=== PATIENT | female | born 1975 | race Caucasian/White ===

== ENCOUNTER 2020-10-02 07:57 | Emergency (ER) | payer BC ==
--- NOTE | 2020-10-02 07:59 | EDM.PDOC ---
ED HPI GENERAL MEDICAL PROBLEM - General Chief Complaint: Abdominal Pain Stated Complaint: L SIDE ABD PAIN Time Seen by Provider: 10/02/20 07:59 Source of Information: Reports: Patient History Limitations: Reports: No Limitations - History of Present Illness INITIAL COMMENTS - FREE TEXT/NARRATIVE: 42-year-old female no relevant past medical history presents for left flank pain x4 days. The pain does radiate to her lateral torso. She has not noted any dysuria or hematuria. Denies nausea or vomiting. Denies abdominal pain. Denies fevers. Does not have a history of kidney stones. Denies any heavy lifting or injuries. left flankpain Pain Score (Numeric/FACES): 10 - Related Data Allergies Allergy/AdvReac Type Severity Reaction Status Date / Time No Known Allergies Allergy Verified 10/02/20 08:17 Home Meds: Home Meds . [No Known Home Meds] 10/02/20 [History] ED ROS GENERAL - Review of Systems Review Of Systems: Comprehensive ROS is negative, except as noted in HPI. ED EXAM, GENERAL - Physical Exam Exam: See Below Exam Limited By: No Limitations General Appearance: Alert, WD/WN, No Apparent Distress Ears: Hearing Grossly Normal Throat/Mouth: Normal Voice, No Airway Compromise Head: Atraumatic, Normocephalic Neck: Normal Inspection Respiratory/Chest: No Respiratory Distress, Lungs Clear, Normal Breath Sounds, No Accessory Muscle Use Cardiovascular: Normal Peripheral Pulses, Regular Rate, Rhythm GI/Abdominal: Soft, Non-Tender Back Exam: Other (Mild left CVA tenderness to palpation) Extremities: Normal Inspection Neurological: Alert, Normal Cognition, Normal Gait Psychiatric: Normal Affect, Normal Mood Skin Exam: Warm, Dry, Intact, Normal Color Course - Vital Signs Last Recorded V/S: Last Vital Signs Temp 97.6 F 10/02/20 08:11 Pulse 99 10/02/20 08:11 Resp 20 10/02/20 08:11 BP 109/69 10/02/20 08:11 Pulse Ox 99 10/02/20 08:11 - Orders/Labs/Meds Orders: Active Orders 24 hr Category Date Time Status Sodium Chloride 0.9% [Saline Flush] Med 10/02/20 08:56 Active 10 ml FLUSH ASDIRECTED PRN Sodium Chloride 0.9% [Saline Flush] Med 10/02/20 08:56 Active 2.5 ml FLUSH ASDIRECTED PRN cefTRIAXone [Rocephin in Dextrose,Iso-Osm 1 GM/50 ML] 1 Med 10/02/20 10:01 Active gm Premix Bag 1 bag IV ONETIME Saline Lock Insert [OM.PC] Stat Oth 10/02/20 08:56 Ordered Medication Orders Ceftriaxone Sodium/Dextrose 1 (gm/ Premix) 50 mls @ 100 mls/hr IV ONETIME ONE Stop: 10/02/20 10:30 Sodium Chloride (Sodium Chloride 0.9% 10 Ml Syringe) 10 ml FLUSH ASDIRECTED PRN PRN Reason: Keep Vein Open Last Admin: 10/02/20 09:43 Dose: 10 ml Documented by: CESAR Sodium Chloride (Sodium Chloride 0.9% 2.5 Ml Syringe) 2.5 ml FLUSH ASDIRECTED PRN PRN Reason: Keep Vein Open Last Admin: 10/02/20 09:43 Dose: 2.5 ml Documented by: CESAR Labs: Laboratory Tests 10/02/20 10/02/20 10/02/20 Range/Units 08:30 08:30 09:40 WBC 13.56 H (4.0-11.0) K/uL RBC 3.98 L (4.30-5.90) M/uL Hgb 11.8 L (12.0-16.0) g/dL Hct 35.2 L (36.0-46.0) % MCV 88.4 (80.0-98.0) fL MCH 29.6 (27.0-32.0) pg MCHC 33.5 (31.0-37.0) g/dL RDW Std Deviation 41.3 (28.0-62.0) fl RDW Coeff of Gary 13 (11.0-15.0) % Plt Count 187 (150-400) K/uL MPV 10.50 (7.40-12.00) fL Neut % (Auto) 77.6 (48.0-80.0) % Lymph % (Auto) 5.2 L (16.0-40.0) % Webb % (Auto) 17.0 H (0.0-15.0) % Eos % (Auto) 0.1 (0.0-7.0) % Baso % (Auto) 0.1 (0.0-1.5) % Neut # (Auto) 10.5 H (1.4-5.7) K/uL Lymph # (Auto) 0.7 (0.6-2.4) K/uL Webb # (Auto) 2.3 H (0.0-0.8) K/uL Eos # (Auto) 0.0 (0.0-0.7) K/uL Baso # (Auto) 0.0 (0.0-0.1) K/uL Nucleated RBC % 0.0 /100WBC Nucleated RBCs # 0 K/uL Sodium (136-145) mmol/L Potassium (3.5-5.1) mmol/L Chloride (98-107) mmol/L Carbon Dioxide (21.0-32.0) mmol/L BUN (7.0-18.0) mg/dL Creatinine (0.6-1.0) mg/dL Est Cr Clr Drug Dosing mL/min Estimated GFR (MDRD) ml/min Glucose (74-106) mg/dL Hemoglobin A1c (4.5 - 6.2) % Calcium (8.5-10.1) mg/dL Urine Color YELLOW Urine Appearance CLEAR Urine pH 6.0 (5.0-8.0) Ur Specific Kensal 1.020 (1.001-1.035) Urine Protein TRACE H (NEGATIVE) mg/dL Urine Glucose (UA) 250 H (NEGATIVE) mg/dL Urine Ketones NEGATIVE (NEGATIVE) mg/dL Urine Occult Blood SMALL H (NEGATIVE) Urine Nitrite NEGATIVE (NEGATIVE) Urine Bilirubin SMALL H (NEGATIVE) Urine Ictotest NEGATIVE Urine Urobilinogen 0.2 (<2.0) EU/dL Ur Leukocyte Esterase TRACE H (NEGATIVE) Urine RBC 1-3 (0-2/HPF) Urine WBC 10-15 (0-5/HPF) Ur Epithelial Cells MODERATE (NONE-FEW) Urine Bacteria FEW (NEGATIVE) Urine HCG, Qual NEGATIVE (NEGATIVE) 10/02/20 10/02/20 Range/Units 09:40 09:40 WBC (4.0-11.0) K/uL RBC (4.30-5.90) M/uL Hgb (12.0-16.0) g/dL Hct (36.0-46.0) % MCV (80.0-98.0) fL MCH (27.0-32.0) pg MCHC (31.0-37.0) g/dL RDW Std Deviation (28.0-62.0) fl RDW Coeff of Gary (11.0-15.0) % Plt Count (150-400) K/uL MPV (7.40-12.00) fL Neut % (Auto) (48.0-80.0) % Lymph % (Auto) (16.0-40.0) % Webb % (Auto) (0.0-15.0) % Eos % (Auto) (0.0-7.0) % Baso % (Auto) (0.0-1.5) % Neut # (Auto) (1.4-5.7) K/uL Lymph # (Auto) (0.6-2.4) K/uL Webb # (Auto) (0.0-0.8) K/uL Eos # (Auto) (0.0-0.7) K/uL Baso # (Auto) (0.0-0.1) K/uL Nucleated RBC % /100WBC Nucleated RBCs # K/uL Sodium 133 L (136-145) mmol/L Potassium 4.0 (3.5-5.1) mmol/L Chloride 101 (98-107) mmol/L Carbon Dioxide 24.7 (21.0-32.0) mmol/L BUN 6 L (7.0-18.0) mg/dL Creatinine 0.9 (0.6-1.0) mg/dL Est Cr Clr Drug Dosing 90.08 mL/min Estimated GFR (MDRD) > 60.0 ml/min Glucose 106 (74-106) mg/dL Hemoglobin A1c 5.1 (4.5 - 6.2) % Calcium 8.5 (8.5-10.1) mg/dL Urine Color Urine Appearance Urine pH (5.0-8.0) Ur Specific Kensal (1.001-1.035) Urine Protein (NEGATIVE) mg/dL Urine Glucose (UA) (NEGATIVE) mg/dL Urine Ketones (NEGATIVE) mg/dL Urine Occult Blood (NEGATIVE) Urine Nitrite (NEGATIVE) Urine Bilirubin (NEGATIVE) Urine Ictotest Urine Urobilinogen (<2.0) EU/dL Ur Leukocyte Esterase (NEGATIVE) Urine RBC (0-2/HPF) Urine WBC (0-5/HPF) Ur Epithelial Cells (NONE-FEW) Urine Bacteria (NEGATIVE) Urine HCG, Qual (NEGATIVE) Meds: Medications Generic Name Dose Route Start Last Admin Trade Name Freq PRN Reason Stop Dose Admin Ceftriaxone Sodium/Dextrose 1 50 mls @ 100 mls/hr 10/02/20 10:01 gm/ Premix IV 10/02/20 10:30 ONETIME ONE Sodium Chloride 10 ml 10/02/20 08:56 10/02/20 09:43 Sodium Chloride 0.9% 10 Ml Syringe FLUSH 10 ml ASDIRECTED PRN Administration Keep Vein Open Sodium Chloride 2.5 ml 10/02/20 08:56 10/02/20 09:43 Sodium Chloride 0.9% 2.5 Ml Syringe FLUSH 2.5 ml ASDIRECTED PRN Administration Keep Vein Open Discontinued Medications Generic Name Dose Route Start Last Admin Trade Name Freq PRN Reason Stop Dose Admin Sodium Chloride 1,000 mls @ 999 mls/hr 10/02/20 08:56 10/02/20 09:33 Normal Saline IV 10/02/20 09:56 999 mls/hr .Bolus ONE Administration Ibuprofen 600 mg 10/02/20 08:26 10/02/20 08:44 Ibuprofen 600 Mg Tab PO 10/02/20 08:27 600 mg ONETIME ONE Administration Oxycodone/Acetaminophen 1 tab 10/02/20 08:26 10/02/20 08:43 Acetaminophen/Oxycodone 325-5 Mg Tab PO 10/02/20 08:27 1 tab ONETIME ONE Administration - Re-Assessments/Exams Free Text/Narrative Re-Assessment/Exam: 10/02/20 08:27 We will get urinalysis and urine test. Will treat pain. We will follow up urinalysis for disposition. 10/02/20 08:58 UA remarkable for hematuria, glucosuria. Will get basic labs including hemoglobin A1c. We will get a noncontrast study to rule out renal stone. 10/02/20 10:02 CT imaging shows mild left perinephric stranding, UA does have leukocyte esterase and 10 WBCs. Will give a dose of Rocephin for UTI. 10/02/20 10:20 Labs unremarkable. Will discharge with bactrim 10/02/20 10:20 Departure - Departure Time of Disposition: 10:20 Disposition: Home, Self-Care 01 Condition: Good Clinical Impression: UTI, Urinary tract infectious disease - Discharge Information Instructions: Urinary Tract Infection, Adult, COVID-19 Vaccine Information Referrals: Nguyen Beltran DO [Primary Care Provider] - Forms: ED Department Discharge Additional Instructions: Your work-up was remarkable for evidence of urinary tract infection. Prescription called Bactrim was sent to your pharmacy. Please follow-up with your primary care physician sometime next week for reassessment. The best way to protect yourself and others from COVID-19 is to take one of the three safe and effective vaccines that have been proven to substantially reduce risk of both infection and severe illness. [facility] is currently offering COVID vaccinations for anyone age 18 and older. To schedule an appointment [email or web address] [phone]. Or, to be contacted by our clinics about scheduling your vaccine online, please go to [email or web address] The following information is given to patients seen in the emergency department who are being discharged to home. This information is to outline your options for follow-up care. We provide all patients seen in our emergency department with a follow-up referral. The need for follow-up, as well as the timing and circumstances, are variable depending upon the specifics of your emergency department visit. If you don't have a primary care physician on staff, we will provide you with a referral. We always advise you to contact your personal physician following an emergency department visit to inform them of the circumstance of the visit and for follow-up with them and/or the need for any referrals to a consulting specialist. The emergency department will also refer you to a specialist when appropriate. This referral assures that you have the opportunity for follow-up care with a specialist. All of these measure are taken in an effort to provide you with optimal care, which includes your follow-up. Under all circumstances we always encourage you to contact your private physician who remains a resource for coordinating your care. When calling for follow-up care, please make the office aware that this follow-up is from your recent emergency room visit. If for any reason you are refused follow-up, please contact the [facility] Emergency Department at and asked to speak to the emergency department charge nurse. Please follow up with your primary care physician. If you do not have a primary care physician, see below: [facility] [address] [place] [address] [facility] [address] [place] [address] Sepsis Event Note (ED) - Focused Exam Vital Signs: Vital Signs Temp Pulse Resp BP Pulse Ox 10/02/20 08:11 97.6 F 99 20 109/69 99 - My Orders Last 24 Hours: My Active Orders 10/02/20 08:56 Sodium Chloride 0.9% [Saline Flush] 10 ml FLUSH ASDIRECTED PRN Sodium Chloride 0.9% [Saline Flush] 2.5 ml FLUSH ASDIRECTED PRN Saline Lock Insert [OM.PC] Stat 10/02/20 10:01 cefTRIAXone [Rocephin in Dextrose,Iso-Osm 1 GM/50 ML] 1 gm Premix Bag 1 bag IV ONETIME - Assessment/Plan Last 24 Hours: My Active Orders 10/02/20 08:56 Sodium Chloride 0.9% [Saline Flush] 10 ml FLUSH ASDIRECTED PRN Sodium Chloride 0.9% [Saline Flush] 2.5 ml FLUSH ASDIRECTED PRN Saline Lock Insert [OM.PC] Stat 10/02/20 10:01 cefTRIAXone [Rocephin in Dextrose,Iso-Osm 1 GM/50 ML] 1 gm Premix Bag 1 bag IV ONETIME
[2020-10-02] MEDS ORDERED: Ibuprofen 600 MG Tab PO ONE (08:26)
[2020-10-02] MEDS ORDERED: Acetaminophen/oxyCODONE 325-5 MG Tab PO ONE (08:26)
[2020-10-02] MEDS ORDERED: Sodium Chloride 0.9% 1,000 ML IV ONE (08:56)
[2020-10-02] MEDS ORDERED: Sodium Chloride 0.9% 2.5 ML Syringe FLUSH PRN (08:56)
[2020-10-02] MEDS ORDERED: Sodium Chloride 0.9% 10 ML Syringe FLUSH PRN (08:56)
--- NOTE | 2020-10-02 09:59 | CT ---
INDICATION: Left-sided flank pain TECHNIQUE: CT abdomen and pelvis without contrast. COMPARISON: None. FINDINGS: Lower chest: Unremarkable. Liver: Normal in size and attenuation. No suspicious masses. Gallbladder and bile ducts: No stones or inflammation. No biliary dilatation. Pancreas: Unremarkable. No mass or inflammation. Spleen: Normal in size. No masses. Adrenal glands: Normal in size. No nodules. Kidneys: No current kidney or ureteral stones. There is minimal left-sided hydronephrosis and perinephric edema. GI tract: Unremarkable. Normal in caliber. No sign of mass or inflammation. Normal appendix. Vasculature: Unremarkable. Lymph nodes: No lymphadenopathy. Abdominal wall/Omentum/Peritoneum: Unremarkable. No sign of mass or infiltration. No free air or significant free fluid. Pelvis: Unremarkable. No pelvic masses. Bones: Unremarkable for age. IMPRESSION: No current kidney or ureteral stone. Minimal left-sided hydronephrosis and perinephric edema may be secondary to a recently passed stone or urinary tract infection. Please note that all CT scans at this facility use dose modulation, iterative reconstruction, and/or weight-based dosing when appropriate to reduce radiation dose to as low as reasonably achievable. Dictated by Joni Clark MD @ 10/02/2020 9:57:[address] Joni Clark @ Oct 02 2020 9:57AM
[2020-10-02] MEDS ORDERED: cefTRIAXone 1 GM in Premix Bag 1 BAG IV ONE (10:01)
[2020-10-02 10:11] LABS: BLOOD UREA NITROGEN,BUN 6 mg/dL (7.0-18.0); CARBON DIOXIDE,CO2 24.7 mmol/L (21.0-32.0); CHLORIDE,CL 101 mmol/L (98-107); GLUCOSE RANDOM 106 mg/dL (74-106); SODIUM,NA 133 mmol/L (136-145)
[2020-10-02 10:13] LABS: HEMOGLOBIN A1C 5.1 %
== END 2020-10-02 10:51 | disposition home or self-care (01) ==
LOC: MW.ED 07:57
DX: N39.0 Urinary tract infection, site not specified (principal)
CPT/HCPCS: 36415; 74176; 80048; 81001; 81025; 83036; 85025; 96365; 99284; A9270; J0696; J7030

== ENCOUNTER 2021-08-31 00:39 | Emergency (ER) | payer BC ==
[2021-08-31] MEDS ORDERED: Lidocaine 1% 5 ML VIAL INJECT ONE (01:07)
[2021-08-31] MEDS ORDERED: Diphtheria,Pertussis(Acell),Tetanus Vaccine 0.5 ML Syringe IM ONE (01:22)
[2021-08-31] MEDS ORDERED: Octyl 2-Cyanoacrylate 1 APPLIC TUBE ONE (02:12)
[2021-08-31] MEDS ORDERED: Octyl 2-Cyanoacrylate 1 Tube TOP STA (02:21)
[2021-08-31] MEDS ORDERED: Ketorolac 30 MG/ML SDV IM STA (02:33)
== END 2021-08-31 02:43 | disposition home or self-care (01) ==
LOC: MW.ED 00:39
DX: S01.112A Laceration without foreign body of left eyelid and periocular area, initial encounter (principal); S05.12XA Contusion of eyeball and orbital tissues, left eye, initial encounter; Z23 Encounter for immunization; W01.198A Fall on same level from slipping, tripping and stumbling with subsequent striking against other object, initial encounter
CPT/HCPCS: 12013; 90471; 90715; 99283; A9270